=== PATIENT | male | born 1985 | race Two or more races ===

== ENCOUNTER 2018-05-21 07:35 | Emergency (ER) | payer MEDICAID ==
[~2018-05-21] VITALS: Ht 172.7 cm; Wt 81.6 kg
[2018-05-21 07:42] VITALS: BP 107/78
[2018-05-21] MEDS ORDERED: KETOROLAC TROMETH 60MG/2ML VIAL IM ONE (08:00)
[2018-05-21] MEDS ORDERED: TETANUS-DIPTH-ACEL PERTUSSIS 0.5ML SYRG IM ONE (09:00)
== END 2018-05-21 09:21 | disposition home or self-care (01) ==
LOC: ER 07:35
DX: S60.454A Superficial foreign body of right ring finger, initial encounter (principal); X58.XXXA Exposure to other specified factors, initial encounter; Y93.89 Activity, other specified; Y99.8 Other external cause status; Y92.89 Other specified places as the place of occurrence of the external cause
CPT/HCPCS: 90471; 90715; 96372; 99284; J1885